=== PATIENT | female | born 1955 | race Caucasian/White ===

== ENCOUNTER → 2019-06-20 | Outpatient (CLI) | payer OTHER ==
[2019-06-20 08:31] LABS: BASO % 1 % (0-3); EOS # 0.2 x10^3/uL (0.0-0.7); EOS % 4 % (0-3); HEMATOCRIT 41.5 % (36.0-47.0); HEMOGLOBIN 14.1 g/dL (12.0-15.5); LYMPH # 1.4 x10^3/uL (1.0-4.8); LYMPH % 25 % (24-48); MEAN CORPUSCULAR HEMOGLOBIN 28 pg (25-35); MEAN CORPUSCULAR HGB CONC 34 g/dL (31-37); MEAN CORPUSCULAR VOLUME 83 fL (79-100); MONO # 0.3 x10^3/uL (0.0-1.1); MONO % 5 % (0-9); NEUT # 3.7 x10^3/uL (1.8-7.7); NEUT % 65 % (31-73); PLATELET COUNT 114 x10^3/uL (140-400); RED BLOOD COUNT 4.98 x10^6/uL (3.50-5.40); RED CELL DISTRIBUTION WIDTH 14.7 % (11.5-14.5); WHITE BLOOD COUNT 5.6 x10^3/uL (4.0-11.0)
[2019-06-20 08:52] LABS: ALBUMIN 3.1 g/dL (3.4-5.0); ALBUMIN/GLOBULIN RATIO 0.7 (1.0-1.7); CALCIUM 8.4 mg/dL (8.5-10.1); CREATININE 0.7 mg/dL (0.6-1.0); GFR 84.5; TOTAL BILIRUBIN 0.7 mg/dL (0.2-1.0); TOTAL PROTEIN 7.3 g/dL (6.4-8.2)
[2019-06-20 08:53] LABS: CHOLESTEROL/HDL RATIO 3.1
[2019-06-20 19:09] LABS: T3 UPTAKE 26 % (24-39); THYROXINE 6.3 ug/dL (4.5-12.0)
[2019-06-21 00:07] LABS: HEMOGLOBIN A1C 7.5 % (4.8-5.6)
== END | disposition home or self-care (01) ==
LOC: LAB 07:46
DX: E11.9 Type 2 diabetes mellitus without complications (principal)
CPT/HCPCS: 36415; 80053; 80061; 82043; 83036; 83721; 84436; 84443; 84479; 85025

== ENCOUNTER 2019-07-18 09:20 | Emergency (ER) | payer OTHER ==
[~2019-07-18] VITALS: Ht 165.1 cm; Wt 108.9 kg
--- NOTE | 2019-07-18 09:58 | PHYS DOC ---
Past Medical History Past Medical History: Depression, GERD, Hypertension Additional Past Medical Histor: obesity Past Surgical History: Hysterectomy, Other Additional Past Surgical Histo: L breast lumpectomy, bladder sling, ankle ORIF, uterine ablation, Past Surgical History skin cancer removal with graft Alcohol Use: None Drug Use: None Adult General Chief Complaint Chief Complaint: SHORTNESS OF BREATH HPI HPI Patient is a 63 year old female who presents to the emergency Department today with complaints of a cough, nasal congestion, fatigue, body aches, chills, and tactile fever for the last 5-6 days. Patient states she did receive her annual i nfluenza immunization this past fall. She denies any swelling in her legs, chest pain, palpitations, nausea, vomiting, diarrhea, rash, or sore throat. She reports that her abdomen hurts from all of the coughing. Pt states that crystal fever did not start until yesterday. She currently rates the discomfort a 2/10 on the pain scale she denies any alleviating factors. Pt states she recently moved here from [place]. Review of Systems Review of Systems Constitutional: see HPI Eyes: Denies change in visual acuity, redness, or eye pain [] HENT: Denies ear pain or sore throat; reports nasal congestion Respiratory: see HPI, reports wheezing last night Cardiovascular: No additional information not addressed in HPI [] GI: Denies nausea, vomiting, bloody stools or diarrheal; see HPI [] : Denies dysuria or hematuria [] Musculoskeletal: reports body aches Integument: Denies rash or skin lesions [] Neurologic: Denies headache Complete systems were reviewed and found to be within normal limits, except as documented in this note. Allergies Allergies Allergies Coded Allergies Type Severity Reaction Last Updated Verified hydrocodone Adverse Reaction Intermediate H/A 07/18/19 Yes Physical Exam Physical Exam Constitutional: Well developed, well nourished, no acute distress, non-toxic appearance, obese [] HENT: Normocephalic, atraumatic, bilateral external ears normal, oropharynx moist, no oral exudates, nose normal. [] Eyes: PERRLA, EOMI, conjunctiva normal, no discharge. [] Neck: Normal range of motion, no stridor. [] Cardiovascular:Heart rate regular rhythm, no murmur [] Lungs & Thorax: Bilateral breath sounds clear to auscultation, Respirations even and unlabored, no retractions, no respiratory distress [] Abdomen: Bowel sounds normal, soft, no tenderness, no masses, no pulsatile masses. [] Skin: Warm, dry, no erythema, no rash. [] Back: No tenderness Extremities: No cyanosis, no clubbing, ROM intact, no edema. [] Neurologic: Alert and oriented X 3, no focal deficits noted. [] Psychologic: Affect normal, judgement normal, mood normal. [] Current Patient Data Vital Signs Vital Signs Date Time Temp Pulse Resp B/P (MAP) Pulse Ox O2 Delivery O2 Flow Rate FiO2 07/18/19 09:24 99.9 95 20 175/84 (114) 97 Room Air 99.9 Lab Values Laboratory Tests Test 07/18/19 09:39 07/18/19 09:46 Influenza Type A Antigen Negative (NEGATIVE) Influenza Type B Antigen Negative (NEGATIVE) White Blood Count 4.3 x10^3/uL (4.0-11.0) Red Blood Count 4.72 x10^6/uL (3.50-5.40) Hemoglobin 13.3 g/dL (12.0-15.5) Hematocrit 38.7 % (36.0-47.0) Mean Corpuscular Volume 82 fL (79-100) Mean Corpuscular Hemoglobin 28 pg (25-35) Mean Corpuscular Hemoglobin Concent 35 g/dL (31-37) Red Cell Distribution Width 14.3 % (11.5-14.5) Platelet Count 86 x10^3/uL (140-400) L Neutrophils (%) (Auto) 61 % (31-73) Lymphocytes (%) (Auto) 27 % (24-48) Monocytes (%) (Auto) 8 % (0-9) Eosinophils (%) (Auto) 4 % (0-3) H Basophils (%) (Auto) 1 % (0-3) Neutrophils # (Auto) 2.6 x10^3/uL (1.8-7.7) Lymphocytes # (Auto) 1.1 x10^3/uL (1.0-4.8) Monocytes # (Auto) 0.3 x10^3/uL (0.0-1.1) Eosinophils # (Auto) 0.2 x10^3/uL (0.0-0.7) Basophils # (Auto) 0.1 x10^3/uL (0.0-0.2) Sodium Level 136 mmol/L (136-145) Potassium Level 3.7 mmol/L (3.5-5.1) Chloride Level 101 mmol/L (98-107) Carbon Dioxide Level 25 mmol/L (21-32) Anion Gap 10 (6-14) Blood Urea Nitrogen 10 mg/dL (7-20) Creatinine 0.6 mg/dL (0.6-1.0) Estimated GFR (Cockcroft-Gault) 101.0 BUN/Creatinine Ratio 17 (6-20) Glucose Level 320 mg/dL (70-99) H Calcium Level 7.9 mg/dL (8.5-10.1) L Total Bilirubin 0.6 mg/dL (0.2-1.0) Aspartate Amino Transferase (AST) 41 U/L (15-37) H Alanine Aminotransferase (ALT) 35 U/L (14-59) Alkaline Phosphatase 132 U/L (46-116) H IM-Cob-K-Type Natriuretic Peptide 121 pg/mL (0-124) Total Protein 6.5 g/dL (6.4-8.2) Albumin 2.9 g/dL (3.4-5.0) L Albumin/Globulin Ratio 0.8 (1.0-1.7) L Laboratory Tests 07/18/19 09:46 Laboratory Tests 07/18/19 09:46 EKG EKG 0937- SR rate 94, no STEMI read by Dr. Stiles[] Radiology/Procedures Radiology/Procedures PROCEDURE: CHEST PA & LATERAL AP and Lateral Views of the Chest 07/18/2019 9:49 AM Indication: Cough, weakness Comparison: None available Findings: Possible mild right middle lobe and lingular infiltrate is seen. No pneumothorax is identified. Heart size is within normal limits. No pleural effusion is seen. Bilateral interstitial coarsening appears to be present. No acute osseous changes are identified. IMPRESSION: 1.Mild interstitial coarsening with possible mild right middle lobe and lingular atelectasis. An atypical infectious process should be considered. 2. Recommend radiographic follow-up to ensure resolution [] Course & Med Decision Making Course & Med Decision Making Pertinent Labs and Imaging studies reviewed. (See chart for details) Patient is a 63-year-old female who presents to emergency room with multiple complaints. Her influenza testing was negative, CBC is unremarkable, CMP reveated blood sugar of 320 otherwise unremarkable. CXR: Mild interstitial coarsening with possible mild right middle lobe and lingular atelectasis. An atypical infectious process should be considered. Pt also noted to have HTN in the ER, pt states she stopped taking her BP medication after weightloss. Pt discussed with Dr. Stiles. Will prescribe a Z-pack and tessalon perrles. PT instructed to resume taking her blood pressure medications and follow up her PCP next week. Return to the ER if symptoms worsen. Pt verbalized an understanding of home care, medications, follow-up, and return to ED instructions and was in agreement with the plan of care. [] Dragon Disclaimer Dragon Disclaimer This electronic medical record was generated, in whole or in part, using a voice recognition dictation system. Departure Departure Impression: Primary Impression: Acute bronchitis Additional Impressions: Respiratory tract congestion with cough Hyperglycemia Hypertension Disposition: HOME, SELF-CARE Condition: STABLE Referrals: YOANNA NOEL (PCP) Patient Instructions: Acute Bronchitis, [id number] Additional Instructions: Fill prescription(s) and use as directed. Recommend use of a Cool mist humidifier in room at bedtime. Alternate Tylenol or ibuprofen as needed for pain/fever. Increase clear fluids. Avoid airway triggers such as smoke, fragrance, dust, and pollen. Resume taking your blood pressure medication as prescribed. Your blood sugar was also elevated during today's visit. Follow-up with your primary care doctor next week, return to the ER if symptoms worsen. Scripts Benzonatate (TESSALON PERLE) 100 Mg Capsule 1 CAP PO TID PRN for COUGH for 7 Days, #21 CAP 0 Refills Prov: SHIRIN COBB [employer] 07/18/19 Azithromycin (AZITHROMYCIN TABLET) 250 Mg Tablet 1 PKG PO UD for 5 Days, #6 TAB 0 Refills 2 the first day followed by 1 for days 2-5 Prov: SHIRIN COBB [employer] 07/18/19 Problem Qualifiers Primary Impression: Acute bronchitis Bronchitis organism: unspecified organism Qualified Codes: J20.9 - Acute bronchitis, unspecified Additional Impressions: Hypertension Hypertension type: essential hypertension Qualified Codes: I10 - Essential (primary) hypertension SHIRIN COBB [employer] Jul 18, 2019 09:58
[2019-07-18 10:03] LABS: BASO # 0.1 x10^3/uL (0.0-0.2); BASO % 1 % (0-3); EOS # 0.2 x10^3/uL (0.0-0.7); EOS % 4 % (0-3); HEMATOCRIT 38.7 % (36.0-47.0); HEMOGLOBIN 13.3 g/dL (12.0-15.5); LYMPH # 1.1 x10^3/uL (1.0-4.8); LYMPH % 27 % (24-48); MEAN CORPUSCULAR HEMOGLOBIN 28 pg (25-35); MEAN CORPUSCULAR HGB CONC 35 g/dL (31-37); MEAN CORPUSCULAR VOLUME 82 fL (79-100); MONO # 0.3 x10^3/uL (0.0-1.1); MONO % 8 % (0-9); NEUT # 2.6 x10^3/uL (1.8-7.7); NEUT % 61 % (31-73); PLATELET COUNT 86 x10^3/uL (140-400); RED BLOOD COUNT 4.72 x10^6/uL (3.50-5.40); RED CELL DISTRIBUTION WIDTH 14.3 % (11.5-14.5); WHITE BLOOD COUNT 4.3 x10^3/uL (4.0-11.0)
[2019-07-18 10:10] LABS: CALCIUM 7.9 mg/dL (8.5-10.1); CREATININE 0.6 mg/dL (0.6-1.0); POTASSIUM 3.7 mmol/L (3.5-5.1)
[2019-07-18 10:16] LABS: ALBUMIN 2.9 g/dL (3.4-5.0); ALBUMIN/GLOBULIN RATIO 0.8 (1.0-1.7); TOTAL BILIRUBIN 0.6 mg/dL (0.2-1.0); TOTAL PROTEIN 6.5 g/dL (6.4-8.2)
--- NOTE | 2019-07-18 10:16 | EKG ---
[facility] [address] [place] [id number] Test Date: 2019-07-18 Test Time: 09:37:03 Pat Name: MAYURI LÓPEZ Department: Room: Gender: F Board Certified Behavioral Analyst: : 1955 Requested By: SHIRIN COBB Order Number: [id number] Reading MD: Measurements Intervals [place] Rate: 94 P: 34 SC: 116 QRS: 50 QRSD: 88 T: 52 QT: 356 QTc: 451 Interpretive Statements SINUS RHYTHM T ABNORMALITY IN HIGH LATERAL LEADS INFERIOR LEADS ABNORMAL ECG RI6.01 No previous ECG available for comparison
[2019-07-18 10:19] LABS: INFLUENZA A PATIENT NEGATIVE (NEGATIVE); INFLUENZA B PATIENT NEGATIVE (NEGATIVE)
--- NOTE | 2019-07-18 10:24 | RAD ---
AP and Lateral Views of the Chest 07/18/2019 9:49 AM Indication: Cough, weakness Comparison: None available Findings: Possible mild right middle lobe and lingular infiltrate is seen. No pneumothorax is identified. Heart size is within normal limits. No pleural effusion is seen. Bilateral interstitial coarsening appears to be present. No acute osseous changes are identified. IMPRESSION: 1.Mild interstitial coarsening with possible mild right middle lobe and lingular atelectasis. An atypical infectious process should be considered. 2. Recommend radiographic follow-up to ensure resolution Electronically signed by: Toni Ignacio MD (07/18/2019 10:21 AM) [id number]
[2019-07-18] MEDS ORDERED: BENZ100C PO (11:45)
[2019-07-18] MEDS ORDERED: AZIT250T6 PO (11:45)
[2019-07-18 12:17] VITALS: BP 195/80
== END 2019-07-18 12:14 | disposition home or self-care (01) ==
LOC: ER 09:20
DX: J20.9 Acute bronchitis, unspecified (principal); I10 Essential (primary) hypertension; R73.9 Hyperglycemia, unspecified; R09.89 Other specified symptoms and signs involving the circulatory and respiratory systems; R05 Cough; R06.2 Wheezing; F32.9 Major depressive disorder, single episode, unspecified; K21.9 Gastro-esophageal reflux disease without esophagitis; E66.9 Obesity, unspecified; Z68.39 Body mass index [BMI] 39.0-39.9, adult; Z98.890 Other specified postprocedural states; Z90.710 Acquired absence of both cervix and uterus; Z88.5 Allergy status to narcotic agent
CPT/HCPCS: 36415; 71046; 80053; 83880; 85025; 87804; 93005; 99285

== ENCOUNTER → 2020-02-24 | Outpatient (CLI) | payer OTHER ==
[~2020-02-24] MED LIST: AZIT250T6 PO; BENZ100C PO
--- NOTE | 2020-02-25 11:41 | SLEEP ---
DATE OF STUDY: 02/24/2020 SLEEP STUDY The patient is a 64-year-old who weighs 238 pounds with a BMI of 40. The patient's [place] score was 11. The patient underwent split night study performed at [facility]. During the night study, the patient spent 415 minutes in bed and slept for 287 minutes with a sleep efficiency of 69%. Sleep latency was 54 minutes with absent REM sleep. Sleep architecture showed increased stage 1 and stage 2 sleep, increased slow wave and absent REM sleep. During the initial diagnostic portion of the study, the patient slept for 94 minutes. The patient had no obstructive mixed or central apneas, but 31 hypopneas. The patient's AHI was 20 per hour, supine AHI of 47 per hour. REM sleep was not seen. EKG monitoring revealed normal sinus rhythm, average heart rate was 79 beats per minute, no sustained arrhythmias observed. Nocturnal oximetry study revealed an average oxygen saturation of 91% with lowest of 81%, 12% time oxygen saturation remained between 80% and 89%. No clinically significant PLM seen. The patient was started on CPAP and titrated up to 13 cm water. At the final pressure, the patient slept for 122 minutes. The patient had supine sleep, but no REM sleep. The patient's AHI was reduced to 0 per hour and oxygen saturation remained above 94%. IMPRESSION: 1. Moderate obstructive sleep apnea with worsening during supine sleep. Absence of REM sleep can underestimate the severity of sleep apnea. 2. Nocturnal hypoxia secondary to obstructive sleep apnea, but resolved with CPAP. 3. No clinically significant periodic limb movements. RECOMMENDATIONS: 1. CPAP at 13 cm water completely eliminated the patient's sleep apnea and should be used on a nightly basis. 2. Follow up in 4-6 weeks to assess compliance with CPAP and to document clinical improvement. 3. Weight loss is strongly advised. 4. Avoid [employer] depressants. 5. Cautioned regarding driving until symptoms of sleep apnea resolve with the use of CPAP. 6. The patient used medium size full face mask. PRESTON UMANA MD DR: EYAD/aminta JOB#: [id number] / [id number]
== END | disposition home or self-care (01) ==
LOC: SLPLAB 18:59
DX: G47.33 Obstructive sleep apnea (adult) (pediatric) (principal); G47.34 Idiopathic sleep related nonobstructive alveolar hypoventilation
CPT/HCPCS: 95810

== ENCOUNTER → 2020-08-04 | Outpatient (CLI) | payer OTHER ==
[2020-08-05 02:09] LABS: HEMOGLOBIN A1C 9.8 % (4.8-5.6)
== END ==
LOC: LAB 08:13
PROVIDERS: ATTEND Family Medicine
DX: E11.9 Type 2 diabetes mellitus without complications (principal)
CPT/HCPCS: 36415; 83036

== ENCOUNTER → 2020-09-02 | Outpatient (CLI) | payer OTHER ==
[2020-09-02 09:33] LABS: BASO % 1 % (0-3); EOS # 0.2 x10^3/uL (0.0-0.7); EOS % 3 % (0-3); HEMATOCRIT 43.1 % (36.0-47.0); HEMOGLOBIN 14.3 g/dL (12.0-15.5); LYMPH # 1.5 x10^3/uL (1.0-4.8); LYMPH % 22 % (24-48); MEAN CORPUSCULAR HEMOGLOBIN 28 pg (25-35); MEAN CORPUSCULAR HGB CONC 33 g/dL (31-37); MEAN CORPUSCULAR VOLUME 83 fL (79-100); MONO # 0.3 x10^3/uL (0.0-1.1); MONO % 4 % (0-9); NEUT # 4.9 x10^3/uL (1.8-7.7); NEUT % 70 % (31-73); PLATELET COUNT 134 x10^3/uL (140-400); RED BLOOD COUNT 5.18 x10^6/uL (3.50-5.40); RED CELL DISTRIBUTION WIDTH 14.9 % (11.5-14.5)
[2020-09-02 09:49] LABS: ALBUMIN 3.1 g/dL (3.4-5.0); ALBUMIN/GLOBULIN RATIO 0.7 (1.0-1.7); CALCIUM 8.9 mg/dL (8.5-10.1); CREATININE 0.6 mg/dL (0.6-1.0); GFR 100.3; TOTAL BILIRUBIN 0.7 mg/dL (0.2-1.0); TOTAL PROTEIN 7.3 g/dL (6.4-8.2)
[2020-09-02 09:50] LABS: CHOLESTEROL/HDL RATIO 3.4
[2020-09-02 11:15] LABS: FREE T4 1.1 ng/dL (0.76-1.46); THYROID STIM HORMONE (TSH) 3.203 uIU/mL (0.358-3.74)
[2020-09-02 22:22] LABS: THYROXINE 6.4 ug/dL (4.5-12.0)
[2020-09-03 03:20] LABS: HEMOGLOBIN A1C 9.8 % (4.8-5.6)
== END ==
LOC: LAB 08:17
PROVIDERS: ATTEND Family Medicine
DX: Z00.00 Encounter for general adult medical examination without abnormal findings (principal); I10 Essential (primary) hypertension; E11.9 Type 2 diabetes mellitus without complications
CPT/HCPCS: 36415; 80053; 80061; 83036; 84436; 84439; 84443; 84479; 85025